=== PATIENT | male | born 1965 | race Caucasian/White ===

== ENCOUNTER → 2017-10-21 | Outpatient (CLI) | payer OTHER ==
--- NOTE | 2017-10-21 11:22 | EKG ---
FACILITY: [facility] [place] PATIENT NAME: VALERIE LOVE : [id number] MR: [id number]: [id number] EXAM DATE: ORDERING PHYSICIAN: ZAHEER VERONICA TECHNOLOGIST: SARAH Test Reason : PRE-OP Blood Pressure : / mmHG Vent. Rate : 066 BPM Atrial Rate : 066 BPM P-R Int : 154 ms QRS Dur : 112 ms QT Int : 412 ms P-R-T Axes : 043 011 017 degrees QTc Int : 431 ms Normal sinus rhythm Incomplete right bundle branch block Borderline ECG No previous ECGs available Confirmed by LENKA CADE ([id number]) on 10/21/2017 3:55:34 PM Referred By: JEREMÍAS Confirmed By:LENKA CADE
== END ==
LOC: LAB 10:33
PROVIDERS: ATTEND Anesthesiology
DX: Z01.812 Encounter for preprocedural laboratory examination (principal); Z01.810 Encounter for preprocedural cardiovascular examination; M75.101 Unspecified rotator cuff tear or rupture of right shoulder, not specified as traumatic; I45.10 Unspecified right bundle-branch block
CPT/HCPCS: 36415; 82040; 82247; 82310; 82374; 82435; 82565; 82947; 84075; 84132; 84155; 84295; 84450; 84460; 84520; 93005

== ENCOUNTER → 2018-04-26 | Outpatient (CLI) | payer SELFPAY ==
[2018-04-26 08:37] LABS: PLATELET COUNT, AUTOMATED 826 K/uL (150-450)
== END ==
LOC: LAB 08:19
PROVIDERS: ATTEND Nurse Practitioner Family
DX: M10.9 Gout, unspecified (principal); R94.5 Abnormal results of liver function studies; R60.0 Localized edema
CPT/HCPCS: 36415; 82040; 82247; 82310; 82374; 82435; 82565; 82947; 83880; 84075; 84132; 84155; 84295; 84443; 84450; 84460; 84520; 84550; 85025; 85651